=== PATIENT | male | born 1955 | race Caucasian/White ===

== ENCOUNTER 2025-05-01 03:19 | Emergency (ER) | payer OTHER ==
[~2025-05-01] VITALS: Ht 180.3 cm; Wt 97.8 kg
[2025-05-01] MEDS ORDERED: TRAZ1TAB12 PO (03:50)
[2025-05-01] MEDS ORDERED: HYDR50TA32 PO (03:50)
--- NOTE | 2025-05-01 03:54 | ED.PDOC ---
History of Present Illness HPI Comments 69-year-old male who came to ER for high blood pressure. Have history of hypertension, has good compliance to his medications. Patient coming in complaining of inability to sleep for the past 3 days. States he will fall asleep only to awaken after an hour so. Patient's self-medicated with melatonin the offered no relief. Blood pressure upon arrival was 181/90 mm Hg. Denies any chest pain shortness of breath Chief Complaint: High Blood Pressure Time Seen by MD: 03:54 Reviewed Notes: Nurses Notes Allergies: Coded Allergies: NO KNOWN ALLERGIES (Unverified , 05/01/25) Home Meds Active Scripts Hydroxyzine HCl (Hydroxyzine Hydrochloride) 50 Mg Tab, 50 MG PO QHSP PRN, #30 TAB Prov:SAMANTHA JOE MD 05/01/25 Trazodone Hcl (Trazodone Hcl) 150 Mg Tab, 1 TAB PO QPM for 90 Days, #90 TAB 5 Refills Prov:SAMANTHA JOE MD 05/01/25 Hydroxyzine HCl (Hydroxyzine Hydrochloride) 50 Mg Tab, 50 MG PO QHSP PRN, #30 TAB Prov:SAMANTHA JOE MD 05/01/25 Trazodone Hcl (Trazodone Hcl) 150 Mg Tab, 1 TAB PO QPM for 90 Days, #90 TAB 3 Refills Prov:SAMANTHA JOE MD 05/01/25 Information Source: Patient Mode of Arrival: Ambulatory Severity: Moderate Timing: Days (3) Duration: Intermittent Prehospital treatment: None Past Medical History PAST MEDICAL HISTORY: High Lipids, HTN Surgical History: Denies all surgeries Family History Family History: Reviewed,noncontributory to illness Social History Smoker: Non-Smoker Alcohol: Denies ETOH Use Drugs: Denies Drug Use Lives In: Home Constitutional: denies: chills, diaphoresis, fatigue, fever, malaise, sweats, weakness, others EENTM: denies: blurred vision, double vision, ear bleeding, ear discharge, ear drainage, ear pain, ear ringing, eye pain, eye redness, hearing loss, mouth pain, mouth swelling, nasal discharge, nose bleeding, nose congestion, nose pain, photophobia, tearing, throat pain, throat swelling, voice changes, others Respiratory: denies: cough, hemoptysis, orthopnea, SOB at rest, shortness of breath, SOB with excertion, stridor, wheezing, others Cardiovascular: denies: chest pain, dizzy spells, diaphoresis, Dyspnea on exertion, edema, irregular heart beat, left arm pain, lightheadedness, palpitations, PND, syncope, others Gastrointestinal: denies: abdomen distended, abdominal pain, blood streaked bowels, constipated, diarrhea, dysphagia, difficulty swallowing, hematemesis, melena, nausea, poor appetite, poor fluid intake, rectal bleeding, rectal pain, vomiting, others Genitourinary: denies: burning, dysuria, flank pain, frequency, hematuria, incontinence, penile discharge, penile sore, pain, testicle pain, testicle swelling, urgency, others Neurological: reports: others (Inability to sleep); denies: dizziness, fainting, headache, left sided numbness, left sided weakness, numbness, paresthesia, pre-existing deficit, right sided numbness, right sided weakness, seizure, speech problems, tingling, tremors, weakness Musculoskeletal: denies: back pain, gout, joint pain, joint swelling, muscle pain, muscle stiffness, neck pain, others Integumetry: denies: bruises, change in color, change in hair/nails, dryness, laceration, lesions, lumps, rash, wounds, others Allergic/Immunocompromised: denies: Difficulty Healing, Frequent Infections, Hives, Itching, others Hematologic/Lymphatic: denies: anemia, blood clots, easy bleeding, easy bruising, swollen glands, others Endocrine: denies: excessive hunger, excessive sweating, excessive thirst, excessive urination, flushing, intolerance to cold, intolerance to heat, unexplained weight gain, unexplained weight loss, others Psychiatric: denies: anxiety, bipolar disorder, depression, hopeless, panic disorder, schizophrenia, sleepless, suicidal, others Physical Exam General Appearance: No Apparent Distress, Normal HEENT: Normal ENT Inspection, Pharynx Normal, TMs Normal Neck: Full Range of Motion, Non-Tender, Normal, Normal Inspection Respiratory: Chest Non-Tender, Lungs Clear, No Accessory Muscle Use, No Respiratory Distress, Normal Breath Sounds Cardiovascular: No Edema, No JVD, No Murmur, No Gallop, Normal Peripheral Pulses, Regular Rate/Rhythm Breast Exam: Deferred Gastrointestinal: No Organomegaly, Non Tender, No Pulsatile Mass, Normal Bowel Sounds, Soft Genitalia: Deferred Pelvic: Deferred Rectal: Deferred Extremities: No calf tenderness, Normal capillary refill, Normal inspection, Normal range of motion, Non-tender, No pedal edema Musculoskeletal : Apperance: Normal Neurologic: Alert, clinical rn manager II-XII nml as Tested, No Motor Deficits, Normal Affect, Normal Mood, No Sensory Deficits Cerebellar Function: Normal Reflexes: Normal Skin: Dry, Normal Color, Warm Lymphatic: No Adenopathy Was a procedure done? Was a procedure done?: No Differential Dx Considerations may include: Anemia, electrolyte imbalance, anxiety, insomnia, hypertensive urgency X-Ray, Labs, Meds, VS Vital Signs Date Time Temp Pulse Resp B/P (MAP) Pulse Ox O2 Delivery O2 Flow Rate FiO2 05/01/25 03:58 98.0 65 17 181/90 (120) 97 98.0 05/01/25 03:19 98.0 65 17 181/90 (120) 97 98.0 Time of 1ST Reevaluation: 03:48 Reevaluation 1ST: Unchanged Patient Education/Counseling: Diagnosis, Treatment Family Education/Counseling: No Family Present Departure 1 Departure Time of Disposition: 05:00 Impression: Primary Impression: Hypertension Qualified Codes: I10 - Essential (primary) hypertension Additional Impression: Insomnia Qualified Codes: F51.01 - Primary insomnia Disposition: 01 HOME / SELF CARE / HOMELESS Condition: Stable e-Prescriptions Hydroxyzine HCl (Hydroxyzine Hydrochloride) 50 Mg Tab 50 MG PO QHSP PRN, #30 TAB Prov: SAMANTHA JOE MD 05/01/25 Trazodone Hcl (Trazodone Hcl) 150 Mg Tab 1 TAB PO QPM for 90 Days, #90 TAB 5 Refills Prov: SAMANTHA JOE MD 05/01/25 Hydroxyzine HCl (Hydroxyzine Hydrochloride) 50 Mg Tab 50 MG PO QHSP PRN, #30 TAB Prov: SAMANTHA JOE MD 05/01/25 Trazodone Hcl (Trazodone Hcl) 150 Mg Tab 1 TAB PO QPM for 90 Days, #90 TAB 3 Refills Prov: SAMANTHA JOE MD 05/01/25 Discharged With: Self Critical Care Note Critical Care Time?: Yes (35 min-critical care time only) Critical care comment: Hypertensive urgency Stability Stability form required: No Heart Score Heart Score: Heart Score Response (Comments) Value History N/A 0 EKG N/A 0 Age N/A 0 Risk Factors N/A 0 Troponin N/A 0 Total 0 I personally scribed for SAMANTHA JOE MD ([email or web address]) on 05/01/25 at 03:54. Electronically submitted by Aleks Garay ([email or web address]). SAMANTHA JOE MD May 01, 2025 03:54
[2025-05-01 03:58] VITALS: BP 181/90; PULSE 65; RESP 17; TEMP 98; O2SAT 97
== END 2025-05-01 04:00 | disposition home or self-care (01) ==
LOC: ER 03:22
DX: I10 Essential (primary) hypertension (principal); G47.00 Insomnia, unspecified; E78.5 Hyperlipidemia, unspecified; Z79.899 Other long term (current) drug therapy